=== PATIENT | female | born 1950 | race Caucasian/White ===

== ENCOUNTER 2022-05-23 07:49 | Outpatient (CLI) | payer MEDICARE, SELFPAY ==
--- NOTE | ~2022-05-23 | MM_ITS ---
EXAMINATION: MM screening [facility] BI w blaze HISTORY: Screening mammogram, family history of breast cancer in her sister. TECHNIQUE: Craniocaudal and mediolateral oblique 3-D tomosynthesis images were obtained and synthetic 2-D images were generated. CAD analysis was submitted and interpreted. COMPARISON: 03/06/2019, 05/02/2017, 08/09/2015, 08/02/2015 BREAST PARENCHYMAL COMPOSITION: There are scattered areas of fibroglandular density. FINDINGS: Scattered benign-appearing calcifications are present. There is no suspicious mass, calcifi cation, or architectural distortion to suggest malignancy in either breast. There has been no suspici ous interval change. IMPRESSION: 1. No mammographic evidence of malignancy. 2. Recommend routine screening mammography in one year. BI-RADS Category 2: Benign finding(s). Reviewed, dictated and finalized at location A.
--- NOTE | ~2022-05-23 | DEXA_ITS ---
Bone Density Report Name: RANDY PENNY Age: 71 Sex: Female Ethnicity: White Date of : 1950 Indication: postmenopausal; screening for osteoporosis; hysterectomy; Referring Provider: JACE, DAVI Study: Bone densitometry was performed. Exam Date: May 23, 2022 Accession number: [id number] Bone Density: Region BMD T-score Z-score Classification AP Spine(L1-L4) 1.211 1.5 3.6 Normal Femoral Neck (Left) 0.680 -1.5 0.3 Osteopenia Total Hip (Left) 0.843 -0.8 0.7 Normal Femoral Neck (Right) 0.645 -1.8 0.0 Osteopenia Total Hip (Right) 0.835 -0.9 0.7 Normal Total Hip Mean 0.839 -0.9 0.7 Normal World Health Organization criteria for BMD impression classify patients as: Normal (T-score at or above -1.0), Osteopenia (T-score between -1.0 and -2.5), or Osteoporosis (T-score at or below -2.5). 10-year Fracture Risk(1): Major Osteoporotic Fracture 10% Hip Fracture 1.7% Reported Risk Factors: [place] (), Neck BMD=0.645, BMI=36.9 (1) FRAX(R) Version 3.08. Fracture probability calculated for an untreated patient. Fracture probability may be lower if the patient has received treatment. Previous Exams: Region Exam Age BMD T-score BMD Change BMD Change Date g/cm2 vs Baseline vs Previous Total Hip(Left) 05/23/2022 71 0.843 -0.8 -0.072 (-7.9%) -0.072 (-7.9%) 03/06/2019 68 0.915 -0.2 Total Hip(Right) 05/23/2022 71 0.835 -0.9 -0.071 (-7.8%) -0.071 (-7.8%) 03/06/2019 68 0.906 -0.3 *Denotes significance at 95% confidence level, LSC for Total Hip = 0.027 g/cm2 Clinical Information Provided by Patient: Has the following medical conditions: Hysterectomy Patient maximum height was 64 Menopause Age: 56 No regular weight bearing exercise Drinks caffeinated beverages Onset of menses at age 13 Number of children 3 Impression: The patient has low bone mass, based on the Right Femoral Neck T-score. The patient has an estimated ten-year risk of hip fracture of 1.7% and an estimated ten-year risk of major fracture of 10%, based on the WHO FRAX algorithm. The BMD for the Total Hip(Left) decreased, changing by -7.9% since the last DXA exam. The BMD for the Total Hip(Right) decreased, changing by -7.8% since the last DXA exam. Discussion: BONE DENSITY IS LOW AT ONE OR MORE SKELETAL SITES. This patient's lowest T-score is low at one or more skeletal sites. It meets the World Health Organization's (WHO) criteria for ?low bone mass? (T-score between -1.
== END 2022-05-23 07:50 | disposition home or self-care (01) ==
PROVIDERS: PCP Physician Assistant; Visit Provider Physician Assistant
DX: Z12.31 Encounter for screening mammogram for malignant neoplasm of breast (principal); Z78.0 Asymptomatic menopausal state; M85.851 Other specified disorders of bone density and structure, right thigh; M85.852 Other specified disorders of bone density and structure, left thigh
CPT/HCPCS: 77063; 77067; 77080

== ENCOUNTER 2024-01-14 08:51 | Outpatient (CLI) | payer MEDICARE, SELFPAY ==
--- NOTE | ~2024-01-14 | MM_ITS ---
EXAMINATION: MM screening [facility] HISTORY: Screening mammogram TECHNIQUE: Craniocaudal and mediolateral oblique 3-D tomosynthesis images were obtained and synthetic 2-D images were generated. CAD analysis was submitted and interpreted. COMPARISON: 05/23/2022, 03/06/2019 bilateral screening mammogram examinations BREAST PARENCHYMAL COMPOSITION: There are scattered areas of fibroglandular density. FINDINGS: Numerous bilateral benign calcifications are noted, primarily secretory type and arterial c alcifications. There is no evidence of suspicious mass, calcification, or architectural distortion to suggest malignancy in either breast. There has been no suspicious interval change. IMPRESSION: 1. Benign calcifications. No mammographic evidence of malignancy. 2. Recommend routine screening mammography in one year. BI-RADS Category 2: Benign finding(s). Reviewed, dictated and finalized at location A. 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
== END 2024-01-14 08:52 | disposition home or self-care (01) ==
PROVIDERS: PCP Physician Assistant; Visit Provider Physician Assistant
DX: Z12.31 Encounter for screening mammogram for malignant neoplasm of breast (principal)
CPT/HCPCS: 77063; 77067

== ENCOUNTER 2025-03-26 08:04 | Outpatient (CLI) | payer MEDICARE, SELFPAY ==
--- NOTE | ~2025-03-26 | MM_ITS ---
EXAMINATION: MM screening melody BI w blaze HISTORY: Screening TECHNIQUE: Craniocaudal and mediolateral oblique 3-D tomosynthesis images were obtained and synthetic 2-D images were generated. CAD analysis was submitted and interpreted. COMPARISON: Comparison to multiple prior studies sequentially, with oldest reviewed study dated 08/02. BREAST PARENCHYMAL COMPOSITION: Not dense: There are scattered areas of fibroglandular density. FINDINGS: There is no evidence of suspicious mass, calcification, or architectural distortion to sugg est malignancy in either breast. There has been no suspicious interval change. IMPRESSION: 1. No mammographic evidence of malignancy. 2. Recommend routine screening mammography in one year. BI-RADS Category 1: Negative Reviewed, dictated and finalized at location A.
--- OUTSIDE RECORDS SUMMARY | 2025-03-26 08:09 | XMS_ITS | Encounter Summary ---
Author Organization [facility] Address [address] [place] [address] Care Team Providers Care Thermocouple Tester Name Role Phone Olivia Almodovar Primary Care Provider [phone] Encounter Details Date Type Department Care Team (Late st Contact Info) Description 1950 Orders Only [facility] Health Information Management [address] [place] [address] Scanning, Provider Social History Tobacco Use Types Packs/Day Years Used Date Smoking Tobacco: Never Assessed Comments Unknown Sex and Gender Information Value Date Recorded Sex Assigned at Not on file Legal 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 Gender Identity Not on file Sexual Orientation Not on file documented as of this encounter Plan of Treatment Not on file documented as of this encounter Procedures Procedure Name Priority Date/Time Associated Diagnosis Comments SCAN - RADIOLOGY/IMAGING 1950 documented in this encounter Results * SCAN - RADIOLOGY/IMAGING (1950) Anatomical Region Laterality Modality Other us Provider Scanning Final Result documented in this encounter Visit Diagnoses Not on filedocumented in this encounter Care Teams Thermocouple Tester Relationship Specialty Start Date End Date Olivia Almodovar PA [address] [place], [place] [phone] PCP - General Internal Medicine 03/05/19 documented as of this encounter
--- OUTSIDE RECORDS SUMMARY | 2025-03-26 08:09 | XMS_ITS | Encounter Summary ---
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 us Historical Provider Final Res ult documented in this encounter Visit Diagnoses Not on filedocumented in this encounter Care Teams Technology Sales Consultant Relationship Specialty Start Date End Date Olivia Almodovar PA [address] [place], [place] [phone] PCP - General Internal Medicine 03/05/19 documented as of this encounter
--- OUTSIDE RECORDS SUMMARY | 2025-03-26 08:09 | XMS_ITS | Clinical Summary ---
Author Organization [facility] Address [address] [place] [id number] Care Team Providers Care Cabin Furnishings Installer Name Role Phone Olivia Almodovar Primary Care Provider [phone] Allergies Active Allergy Reactions Criticality Noted Date Comments Codeine GI Upset 07/09/2022 Medications escitalopram (LEXAPRO) 10 MG tablet Take 10 mg by mouth daily. Active lisinopril (PRINIVIL) 10 MG tablet Take 10 mg by mouth daily. Active rosuvastatin (CRESTOR) 20 MG tablet Take 20 mg by mouth nightly at bedtime. Active vitamin D3, cholecalciferol , 5000 UNITS capsule Take 5,000 Units by mouth daily. Active Active Problems No known active problems Family History Medical History Relation Comments Heart Disease Father Cancer Mother Relation Status Comments Father Mother Social History Tobacco Use Types Packs/Day Years Used Date Smoking Tobacco: Never Smokeless Tobacco: Never Alcohol Use Standard Drinks/Week Comments Yes 0 (1 standard drink = 0.6 oz pur e alcohol) OCCAS. Comments No Sex and Gender Information Value Date Recorded Sex Assigned at Not on file Legal Sex Female 7:46 PM CDT Gender Identity Not on file Sexual Orientation Not on file Last Filed Vital Signs Vital Sign Reading Time Taken Comments Blood Pressure 108/61 07/19/2022 9:00 AM CDT Pulse 61 07/19/2022 9:00 AM CDT Temperature 35.9 C (96.6 F) 07/19/2022 8:48 AM CDT Respiratory Rate 16 07/19/2022 9:00 AM CDT Oxygen Saturation 99% 07/19/2022 9:00 AM CDT Inhaled Oxygen Concentration - - Weight 90.7 kg (200 lb) 07/09/2022 3:34 PM CDT Height 165.1 cm (5' 5 ) 07/09/2022 3:34 PM CDT Body Mass Index 33.28 07/09/2022 3:34 PM CDT Plan of Treatment Health Maintenance Due Date Last Done Comments Hepatitis C 1969 Mammogram Screening 1991 Zoster Vaccines (1 of 2) 2001 Annual Medicare Wellness Visit 2016 DTaP, Tdap and Td Vaccines (2 - Tdap) 03/23/2018 03/23/2008 COVID-19 Vaccine ( season) 2024 03/06/2022, 08/08/2021, 01/24/2021, Additional history exists RSV Immunization or 60+ Years (1 - 1-dose 75+ series) 2026 Colorectal Cancer Screening Colonoscopy (10 Years) 07/19/2032 07/19/2022 Dexa Scan (General) Completed 05/23/2022 Pneumococcal Vaccine: 50+ Years Completed 06/26/2022, 03/05/2019, 01/31/2017 Meningococcal B Vaccine Aged Out No l onger eligible based on patient's age to complete this topic Meningococcal Vaccine Aged Out No francois eugenia eligible based on patient's age to complete this topic RSV Immunizations Under 20 Months Aged Out No longer eligible based on patient's age to complete this topic Insurance [place] [employer] Care Teams Cabin Furnishings Installer Relationship Specialty Start Date End Date Olivia Almodovar PA [address] [place] [address] PCP - General PHYSICIAN RESUME WRITER 07/19/22
--- OUTSIDE RECORDS SUMMARY | 2025-03-26 08:09 | XMS_ITS | Encounter Summary ---
Author Organization 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 us Historical Provider Final Res ult documented in this encounter Visit Diagnoses Not on filedocumented in this encounter Care Teams Delivery Room Clerk Relationship Specialty Start Date End Date Olivia Almodovar PA [address] [place], [place] [phone] PCP - General Internal Medicine 03/05/19 documented as of this encounter
--- OUTSIDE RECORDS SUMMARY | 2025-03-26 08:09 | XMS_ITS | Referral Summary ---
Author Organization [facility] [address] [facility] Address [address] [place] [address] Care Team Providers Care Manager Of Financial Name Role Phone Olivia Almodovar Primary Care Provider [phone] Encounters Date Type Department Care Team Description 03/09/2025 8:39 AM CDT - 03/09/2025 11:59 PM CDT Hospital Encounter [facility] Diag Imaging [address] [place] [id number] Status post total knee replacement not using cement, left Discharge Disposition: Discharge to home or self care 03/09/2025 9:00 AM CDT Office Visit [facility] [address] [place] [phone] Jovany Montgomery MD Status post total knee replacement not using cement, left (Primary Dx) 02/18/2025 Telephone [facility] [address] [place] [address] [place] [phone] Jovany Montgomery MD after surgery machine 02/09/2025 11:00 AM CDT - 02/09/2025 11:59 PM CDT Hospital Encounter [facility] Diag Imaging [address] [place] [phone] Primary osteoarthritis of left knee Discharge Disposition: Discharge to home or self care 02/09/2025 12:40 PM CDT - 02/09/2025 11:59 PM CDT Hospital Encounter [facility] Cardiac Testing [address] [place] [phone] Pain of left calf Discharge Disposition: Discharge to home or self care 02/09/2025 10:30 AM CDT Office Visit [facility] [address] [place] [address] [place] [phone] Vasu Pereira PA Status post total knee replacement not using cement, left (Primary Dx); Orthopedic aftercare; Pain of left calf; Primary osteoarthritis of left knee 02/08/2025 Telephone [facility] [address] [place] [address] [place] [phone] Jovany Montgomery MD 02/04/2025 9:30 AM CDT Telemedicine [facility] Family Medicine [address] [facility] [address] [place] [phone] Olivia Almodovar PA Status post total knee replacement not using cement, left (Primary Dx); Moderate episode of recurrent major depressive disorder (HCC); Mixed hyperlipidemia; Primary hypertension 01/27/2025 Telephone [facility] [address] [place] [phone] Jovany Montgomery MD 01/25/2025 9:10 AM CDT - 01/26/2025 3:00 PM CDT Hospital Encounter [address] [address] Jovany Montgomery MD Primary osteoarthritis of left knee (Primary Dx); Arthritis of left knee Discharge Disposition: Discharge to home, home health skilled care 01/25/2025 10:30 AM CDT Ancillary Procedure [facility] OR [address] [place] [phone] 01/25/2025 11:15 AM CDT - 01/25/2025 1:45 PM CDT Surgery [facility] OR [address] [place] [phone] Jovany Montgomery MD LEFT TOTAL KNEE ARTHROPLASTY 01/25/2025 11:01 AM CDT Anesthesia Event [facility] Main OR [address] [place] [phone] Rhonda Campos MD Taylor-White, Carlotta A., NP 01/15/2025 Telephone [facility] [address] [place] [address] [address] [place] [phone] Jovany Montgomery MD Wants seat for toilet after TKA sgy 01/12/2025 Documentation [facility] [address] [address] Kezia Patel, NATHALIE 01/12/2025 Plan of Care Documentation [facility] OP Physical Therapy [address] [place] [phone] 01/12/2025 12:20 PM FIREWORKS [employer]KER Pre-Admission Testing [facility] PreAdmission Testing [address] [place] [phone] Preop examination (Primary Dx); Primary osteoarthritis of left knee; Preop testing 01/12/2025 10:00 AM FIREWORKS [employer] Therapy [facility] OP Physical Therapy [address] [place] [phone] Kerri Kwok, HALEIGH Primary osteoarthritis of right knee (Primary Dx) 01/08/2025 Telephone [facility] [address] [place] [address] [place] [phone] Jovany Montgomery MD 01/05/2025 2:30 PM FIREWORKS [employer] Office Visit [facility] [address] [facility] [address] [place] [phone] Olivia Almodovar PA Primary osteoarthritis of left knee (Primary Dx); Encounter for pre-operative examination; Moderate episode of recurrent major depressive disorder (HCC); Mixed hyperlipidemia; Primary hypertension; Anxiety; Obesity (BMI 30.0-34.9); BMI 34.0-34.9,adult 01/04/2025 5:59 AM FIREWORKS MAKER - 01/04/2025 11:59 PM FIREWORKS [employer] Hospital Encounter [facility] MRI [address] [place] [address] Chronic right-sided low back pain with bilateral sciatica; Lumbar radiculopathy Discharge Disposition: Discharge to home or self care from Last 3 Months Allergies Active Allergy Reactions Criticality Noted Date Comments Codeine Stomach upset Low 12/04/2011 Stomach/GI Upset Medications cholecalcifer ol (VITAMIN D-3) 5,000 unit capsule Take 1 capsule (5,000 Units total) by mouth daily Active cyanocobalami n, vitamin B-12, (VITAMIN B-12 ORAL) Take 1 tablet by mouth every evening Active CALCIUM ORAL Take 1 tablet by mouth daily Active escitalopram (LEXAPRO) 10 mg tabletIndicat ions:Anxiety Take 1 tablet (10 mg total) by mouth daily 01/18/20 25 Active HYDROcodone-a cetaminophen (NORCO) 5-325 mg per tabletIndicat ions:Pain Take 1-2 tablets by mouth every 4 (four) hours as needed for pain 50 tablet 01/27/20 25 Active Additional Information Patient not taking.Reported on 03/09/2025 meloxicam (MOBIC) 15 mg tablet Take 1 tablet (15 mg total) by mouth daily 30 tablet 1 01/27/20 25 026 Active traMADoL (ULTRAM) 50 mg tablet Take 1 tablet (50 mg total) by mouth every 6 (six) hours as needed for pain (mild to moderate pain, ok to take with Meloxicam, do not take with Jackson) 40 tablet 01/27/20 25 Active rosuvastatin (CRESTOR) 20 mg tablet Take 1 tablet by mouth once daily 90 tablet 03/10/20 25 Active lisinopriL (PRINIVIL,ZES TRIL) 10 mg tablet TAKE 1 TABLET BY MOUTH EVERY DAY 90 tablet 1 03/11/20 25 Active rosuvastatin (CRESTOR) 20 mg tablet Take 1 tablet by mouth once daily 90 tablet 12/11/19 25 025 Discontinued senna-docusat e (PERICOLACE) 8.6-50 mg Take 1 tablet by mouth daily 30 tablet 01/27/20 25 025 Discontinued( erapy completed) aspirin 81 mg enteric coated tabletIndicat ions:preventi on of thrombosis Take 1 tablet (81 mg total) by mouth daily for 28 days 28 tablet 01/27/20 25 025 Discontinued(Th erapy completed) lisinopriL (PRINIVIL,ZES TRIL) 10 mg tablet Take 1 tablet (10 mg total) by mouth daily 02/17/20 25 025 Discontinued Active Problems Problem Noted Date Diagnosed Date Status post total knee replacement not using vadim ent, left 02/09/2025 Assessment & Plan (02/16/2025 10:17 PM CDT): Status post total knee replacement by Dr. Jad Montgomery on January 25, 2025. She is doing physical therapy at home and doing well. No signs or symptoms of infection. Continue follow-up per ortho or follow up with this she has any other problems or concerns Pain of left calf 02/09/2025 Primary osteoarthritis of left knee 12/01/2024 Assessment & Plan (01/10/2025 11:14 PM FIREWORKS MAKER): Patient has arthritis of the knee. She is scheduled for total left knee replacement with Dr. Montgomery on January 25 in [facility]. Fatigue 03/07/2024 Assessment & Plan (03/07/2024 10:21 PM CDT): Probably multifactorial. Check labs and followup to re-evaluate Chronic pain of both knees 03/07/2024 Assessment & Plan (09/01/2024 11:31 AM CDT): Worsening BL knee pain. Taking ibuprofen as needed. Often wakes up in the middle of the night and in morning in pain. Will START meloxicam 15 mg nightly for longer duration of pain control. STOP ibuprofen with concurrent use of meloxicam. Patient is currently seeing Dr. Montgomery [facility] ortho. Steroid injections done with no improvement in pain. Patient is deferring surgery and other interventions until later time as she is currently caring for her who had recent surgery. Declines PT. Assessment & Plan (03/07/2024 10:21 PM CDT): Patient with bilateral knee pain. Will start with x-rays. Anxiety 08/26/2023 Assessment & Plan (01/10/2025 11:14 PM FIREWORKS MAKER): Symptoms are stable with the Lexapro 10. Assessment & Plan (09/01/2024 11:13 AM CDT): Stable with Lexapro 10 mg Assessment & Plan (08/26/2023 9:11 AM CDT): Stable with Lexapro. Refills available at pharmacy Chronic left-sided low back pain without sciatic a 02/25/2023 Assessment & Plan (02/25/2023 11:54 PM CDT): This is a significant, separately identifiable problem that was evaluated and managed on the same day as the wellness exam Encouraged NSAIDS (if able to safely tolerate) or Tylenol. Topical preparations like Lidocaine patches, Biofreeze, ICYHOT etc as needed. Heat, stretching Avoid long periods of sitting/laying. Encouraged PT but patient declined. Followup if has any problems controlling bowels or bladder or if sxs worsen. Obesity (BMI 30.0-34.9) 03/06/2022 Assessment & Plan (01/05/2025 2:41 PM FIREWORKS MAKER): Discussed the patient's BMI. The BMI is above average. BMI management plan is completed. BMI Follow-up includes: nutrition counseling, exercise counseling and education provided. Assessment & Plan (09/01/2024 8:37 AM CDT): Discussed the patient's BMI. The BMI is above average. BMI management plan is completed. BMI Follow-up includes: nutrition counseling, exercise counseling and education provided. Assessment & Plan (03/20/2022 11:40 PM CDT): Obesity is unchanged. Discussed the patient's BMI. The BMI is above average. BMI management plan is completed. BMI Follow-up includes: nutrition counseling, exercise counseling and education provided. Patient has an obesity-related condition (not limited to: hypertension, obstructive sleep apnea, osteoarthritis, hyperlipidemia, diabetes, etc.). Therefore, morbid obesity may be documented for patients with a BMI between 35.00-39.99. Assessment & Plan (03/07/2022 10:09 PM CDT): Obesity is unchanged. Discussed the patient's BMI. The BMI is above average. BMI management plan is completed. BMI Follow-up includes: nutrition counseling, exercise counseling and education provided. Patient has an obesity-related condition (not limited to: hypertension, obstructive sleep apnea, osteoarthritis, hyperlipidemia, diabetes, etc.). Therefore, morbid obesity may be documented for patients with a BMI between 35.00-39.99. Lesion of skin of face 03/06/2022 Assessment & Plan (03/07/2024 10:20 PM CDT): Encouraged to follow-up with Dr. Abdi for the area on her face/nose Assessment & Plan (02/25/2023 11:53 PM CDT): Patient has facial rash. Unsure if it is secondary to wearing a mask verses a pustular rosacea. She would like to see Dermatology. She prefers Dr. Abdi. Provided his name and number to call as she was referred last year and did not follow-up. She is in agreement the plan Assessment & Plan (03/07/2022 10:09 PM CDT): Bleeding lesion on the tip of her nose. Will make referral to Dermatology for further evaluation. Primary hypertension 02/24/2022 Assessment & Plan (02/16/2025 10:17 PM CDT): Bp is stable/in acceptable range for any co-morbidities. Encouraged to limit sodium intake and exercise for weight control. Continue lisinopril 10 Assessment & Plan (01/10/2025 11:14 PM FIREWORKS MAKER): Bp is stable/in acceptable range for any co-morbidities. Encouraged to limit sodium intake and exercise for weight control. Continue lisinopril 10 Assessment & Plan (09/01/2024 11:13 AM CDT): BP in stable range. Encouraged low sodium diet, daily exercise, weight management. Continue lisinopril 10 mg. Assessment & Plan (03/07/2024 10:21 PM CDT): Bp is stable/in acceptable range for any co-morbidities. Encouraged to limit sodium intake and exercise for weight control. Continue lisinopril. Encouraged her to decrease her banana intake as her potassium is just on the upper edge of normal Assessment & Plan (08/26/2023 9:11 AM CDT): Bp is stable/in acceptable range for any co-morbidities. Encouraged to limit sodium intake and exercise for weight control. Continue lisinopril 10 Assessment & Plan (02/25/2023 11:52 PM CDT): Bp is stable/in acceptable range for any co-morbidities. Encouraged to limit sodium intake and exercise for weight control. Continue lisinopril Assessment & Plan (08/26/2022 2:49 PM CDT): Bp is stable/in acceptable range for any co-morbidities. Encouraged to limit sodium intake and exercise for weight control. Continue lisinopril 10 Assessment & Plan (06/26/2022 8:31 AM CDT): Bp is stable/in acceptable range for any co-morbidities. Encouraged to limit sodium intake and exercise for weight control. Continue lisinopril Assessment & Plan (03/20/2022 11:40 PM CDT): Bp is stable/in acceptable range for any co-morbidities. Encouraged to limit sodium intake and exercise for weight control. Stable with lisinopril 10 Assessment & Plan (03/07/2022 10:09 PM CDT): Bp is stable/in acceptable range for any co-morbidities. Encouraged to limit sodium intake and exercise for weight control. Continue lisinopril 10 mg Assessment & Plan (02/24/2022 2:04 PM CDT): Patient with elevated readings today. Her readings in the past have been more normal but she has not followed in the office in a few years. Discussed starting medication as I think she would benefit but she is very hesitant to add a medication. Advised may follow-up in 1 week with readings to reassess and if still elevated that point will need to start medication. She is in agreement. BMI 34.0-34.9,adult 06/10/2019 Assessment & Plan (01/05/2025 2:41 PM FIREWORKS MAKER): Discussed the patient's BMI. The BMI is above average. BMI management plan is completed. BMI Follow-up includes: nutrition counseling, exercise counseling and education provided. Assessment & Plan (08/30/2019 7:57 PM CDT): Obesity is unchanged. Discussed the patient's BMI. The BMI is above average. BMI management plan is completed. BMI Follow-up includes: nutrition counseling, exercise counseling and education provided. Assessment & Plan (06/10/2019 2:55 PM CDT): Obesity is unchanged. Discussed the patient's BMI. The BMI is above average. BMI management plan is completed. BMI Follow-up includes: nutrition counseling, exercise counseling and education provided. Vertigo 03/05/2019 Assessment & Plan (03/15/2019 7:05 PM CDT): Refill meclizine to use prn. Tinea cruris 03/05/2019 Assessment & Plan (03/15/2019 6:58 PM CDT): Flairing. Keep area clean and dry. Use cool hairdryer prior to applying the Lotrisone. Menopause 03/05/2019 Assessment & Plan (02/24/2022 2:00 PM CDT): Check DEXA Assessment & Plan (03/15/2019 6:58 PM CDT): DXA order provided Mixed hyperlipidemia 03/05/2019 Assessment & Plan (02/16/2025 10:17 PM CDT): Encouraged patient to follow low fat/low chol diet like the Mediterranean diet. Increase good fats in the diet. Increase exercise. Monitor labs as needed. Continue Crestor 20 Assessment & Plan (01/10/2025 11:14 PM FIREWORKS MAKER): Encouraged patient to follow low fat/low chol diet like the Mediterranean diet. Increase good fats in the diet. Increase exercise. Monitor labs as needed. Continue Crestor 20 Assessment & Plan (09/01/2024 11:08 AM CDT): Lipid levels stable. Encouraged low fat/low cholesterol diet such as the Mediterranean diet. Encouraged healthy lifestyle, daily exercise, weight management. Continue rosuvastatin 20 mg daily. Assessment & Plan (03/07/2024 10:20 PM CDT): Encouraged patient to follow low fat/low chol diet like the Mediterranean diet. Increase good fats in the diet. Increase exercise. Monitor labs as needed. Continue Crestor 20 Assessment & Plan (08/26/2023 9:11 AM CDT): Encouraged patient to follow low fat/low chol diet like the Mediterranean diet. Increase good fats in the diet. Increase exercise. Monitor labs as needed. Continue Crestor Assessment & Plan (02/25/2023 11:52 PM CDT): Encouraged patient to follow low fat/low chol diet like the Mediterranean diet. Increase good fats in the diet. Increase exercise. Monitor labs as needed. Continue Crestor Assessment & Plan (08/26/2022 2:49 PM CDT): Encouraged patient to follow low fat/low chol diet like the Mediterranean diet. Increase good fats in the diet. Increase exercise. Monitor labs as needed. Continue Crestor Assessment & Plan (06/26/2022 8:30 AM CDT): Encouraged patient to follow low fat/low chol diet like the Mediterranean diet. Increase good fats in the diet. Increase exercise. Monitor labs as needed. Patient still wants to work on diet control. Waiting to check labs to determine control Assessment & Plan (03/26/2022 1:54 PM CDT): Encouraged patient to follow low fat/low chol diet like the Mediterranean diet. Increase good fats in the diet. Increase exercise. Monitor labs as needed. Discussed starting statin. She declines at this time Addendum: 03/26 corrected after speaking with patient -- Will start Crestor 10mg. Try her normal pharm [facility] and if too expensive, will try good Rx. Assessment & Plan (03/07/2022 10:08 PM CDT): Encouraged patient to follow low fat/low chol diet like the Mediterranean diet. Increase good fats in the diet. Increase exercise. Monitor labs as needed. Will await lipid panel as it was not drawn at the lab. Assessment & Plan (02/24/2022 2:00 PM CDT): Encouraged patient to follow low fat/low chol diet like the Mediterranean diet. Increase good fats in the diet. Increase exercise. Monitor labs as needed. Patient stop statin a couple years ago as she did not follow-up in the office. Has not had labs since 2019. Recommend labs and reassess need for the statin. Assessment & Plan (08/30/2019 7:57 PM CDT): Encouraged patient to continue low fat/low chol diet. Continue exercise. Increase good fats in the diet. Monitor labs as needed. D Needs to start statin. Reviewed risks, benefit, alternatives, side effects and proper use. Start Crestor. Recheck LFTs in 3-4 months when rechecking the lipids Assessment & Plan (03/15/2019 6:59 PM CDT): Check labs. Pt hasn't had labs in years. Hyperglycemia 03/05/2019 Assessment & Plan (03/07/2024 10:20 PM CDT): Pre-diabetes/hyperglycemia is a precursor to Dm. Stressed importance of working on diet (decrease your simple sugars and one carbohydrate with each meal) and increase you exercise to achieve weight loss and this will help prevent you from progressing to diabetes. Assessment & Plan (08/26/2022 2:49 PM CDT): Pre-diabetes/hyperglycemia is a precursor to Dm. Stressed importance of working on diet (decrease your simple sugars and one carbohydrate with each meal) and increase you exercise to achieve weight loss and this will help prevent you from progressing to diabetes. Assessment & Plan (02/24/2022 2:00 PM CDT): Pre-diabetes/hyperglycemia is a precursor to Dm. Stressed importance of working on diet (decrease your simple sugars and one carbohydrate with each meal) and increase you exercise to achieve weight loss and this will help prevent you from progressing to diabetes. Assessment & Plan (03/15/2019 6:59 PM CDT): Hyperglycemia can be a precursor to Dm. Stressed importance of working on diet (decrease your simple sugars and one carbohydrate with each meal) and increase you exercise to achieve weight loss and this will help prevent you from progressing to diabetes. Check labs Moderate episode of recurrent major depressive d yolandeer 03/04/2019 Assessment & Plan (02/16/2025 10:16 PM CDT): Depression anxiety symptoms are stable with the Lexapro 10 Assessment & Plan (01/10/2025 11:14 PM FIREWORKS MAKER): Symptoms are stable with Lexapro 10 Assessment & Plan (03/07/2024 10:20 PM CDT): Stable with Lexapro. Still encouraged Nicole[employer] anonymous and counseling. Assessment & Plan (08/26/2023 9:10 AM CDT): Continue Lexapro. Symptoms are stable Assessment & Plan (02/25/2023 11:52 PM CDT): Symptoms are stable with Lexapro 10 Assessment & Plan (08/26/2022 2:49 PM CDT): Patient still have symptoms as well as problems with gambling. Was prescribed Lexapro but very hesitant to take it. Reviewed risks benefits alternatives side effects and proper use. She still has available at home so may consider. Call at any time if needs assistance. Strongly encouraged counseling Assessment & Plan (06/26/2022 8:29 AM CDT): Discussed again stress and depression symptoms at length. Discussed the addiction with her gambling. Strongly encouraged counseling. Will represcribe the Lexapro 10 mg. Reviewed risks benefits alternatives side effects and proper use. Follow-up in 4-6 weeks to reassess Assessment & Plan (03/07/2022 10:08 PM CDT): Patient never started the Lexapro. She feels like she is doing okay. She does get frustrated at times but wants to continue to observe. Will reassess in 4-6 weeks. May call at any time if desires to start again. Assessment & Plan (08/30/2019 7:57 PM CDT): Never started the Lexapro. Wants to monitor without medication. Assessment & Plan (06/13/2019 9:24 AM CDT): Discussed depression/grief and gambling. Discussed treatment options including medication and counseling and behavioral changes, but she may need to seek specific treatment for gambling addiction. Start Lexapro. Reviewed risks, benefit, alternatives, side effects and proper use. Assessment & Plan (03/15/2019 7:04 PM CDT): Depression sxs are increasing related to situational issues. Reviewed behavioral changes. Discussed medication but at this point wants to try to without medications. Call if sxs increase Depression, major, single episode, mild 02/01/20 17 Non morbid obesity due to excess calories 2016 Resolved Problems Problem Noted Date Diagnosed Date Resolved Date Orthopedic aftercare 02/09/2025 025 Arthritis of left knee 01/25/202502/16 Encounter for pre-operative examination 01/10/2025 02/16/2025 Assessment & Plan (01/10/2025 11:19 PM FIREWORKS MAKER): Pre-op labs and EKG results are on the chart and are normal. I have examined this patient and ordered the appropriate lab work/tests. I have reviewed with patient the inherent risks associated with surgery, not limited to bleeding, infection, DVT, etc. I EKG was normal. Patient denies any cardiac sxs with activity. Therefore, to the best of my knowledge, there is not a medical contraindication for undergoing this elective surgery with general and/or regional anesthesia. BMI 34.0-34.9,adult 08/26/2023 09/01/20 24 Assessment & Plan (03/07/2024 10:21 PM CDT): Discussed the patient's BMI. The BMI is above average. BMI management plan is completed. BMI Follow-up includes: nutrition counseling, exercise counseling and education provided. Assessment & Plan (08/26/2023 8:41 AM CDT): Discussed the patient's BMI. The BMI is above average. BMI management plan is completed. BMI Follow-up includes: nutrition counseling, exercise counseling and education provided. BMI 33.0-33.9,adult 08/26/2023 01/11/20 25 Assessment & Plan (09/01/2024 8:35 AM CDT): Discussed the patient's BMI. The BMI is above average. BMI management plan is completed. BMI Follow-up includes: nutrition counseling, exercise counseling and education provided. Assessment & Plan (03/07/2024 10:21 PM CDT): Discussed the patient's BMI. The BMI is above average. BMI management plan is completed. BMI Follow-up includes: nutrition counseling, exercise counseling and education provided. Assessment & Plan (08/26/2023 8:41 AM CDT): Discussed the patient's BMI. The BMI is above average. BMI management plan is completed. BMI Follow-up includes: nutrition counseling, exercise counseling and education provided. Need for immunization against influenza 08/26/2023 03/07/2024 Assessment & Plan (08/26/2023 9:11 AM CDT): Flu vaccine updated in the office today Obesity (BMI 30-39.9) 02/25/20232022 Assessment & Plan (02/25/2023 8:47 AM CDT): Discussed the patient's BMI. The BMI is above average. BMI management plan is completed. BMI Follow-up includes: nutrition counseling, exercise counseling and education provided. BMI 34.0-34.9,adult 02/25/2023 08/26/20 Assessment & Plan (02/25/2023 8:47 AM CDT): Discussed the patient's BMI. The BMI is above average. BMI management plan is completed. BMI Follow-up includes: nutrition counseling, exercise counseling and education provided. Medicare annual wellness visit, subsequent 02/25/2023 01/10/2025 Assessment & Plan (03/07/2024 10:20 PM CDT): Insert Medicare wellness exam Assessment & Plan (02/25/2023 11:54 PM CDT): Encouraged healthy lifestyle, good nutrition and exercise. Encouraged Calcium and Vitamin D and weight bearing exercise for bone health. Reviewed immunizations. Reviewed age appropirate screenings. Medicare Wellness Documentation is completed within the chart Breast cancer screening by mammogram 02/25/2023 03/07/2024 Assessment & Plan (02/25/2023 11:54 PM CDT): Mammogram order provided Hyperkalemia 02/25/2023 03/07/2024 Assessment & Plan (02/25/2023 11:55 PM CDT): This is a significant, separately identifiable problem that was evaluated and managed on the same day as the wellness exam Potassium is elevated. She states she eats 1-2 bananas every day. Suspect this is the underlying cause of the hyperkalemia. Encouraged her to decrease to half a banana day. Recheck CMP in 1-2 weeks. If still elevated may have to consider changing the lisinopril but truly suspect that this is dietary intake issue. Flu vaccine need 08/26/2022 02/25/2023 Assessment & Plan (08/26/2022 2:49 PM CDT): Flu vaccine updated in the office today Obesity (BMI 30-39.9) 06/26/20222022 Assessment & Plan (08/26/2022 2:49 PM CDT): Discussed the patient's BMI. The BMI is above average. BMI management plan is completed. BMI Follow-up includes: nutrition counseling, exercise counseling and education provided. Assessment & Plan (06/26/2022 7:29 AM CDT): Obesity is unchanged. Discussed the patient's BMI. The BMI is above average. BMI management plan is completed. BMI Follow-up includes: nutrition counseling, exercise counseling and education provided. BMI 34.0-34.9,adult 06/26/2022 02/26/20 23 Assessment & Plan (08/26/2022 2:49 PM CDT): Discussed the patient's BMI. The BMI is above average. BMI management plan is completed. BMI Follow-up includes: nutrition counseling, exercise counseling and education provided. Assessment & Plan (06/26/2022 7:29 AM CDT): Obesity is unchanged. Discussed the patient's BMI. The BMI is above average. BMI management plan is completed. BMI Follow-up includes: nutrition counseling, exercise counseling and education provided. Need for 23-polyvalent pneum ococcal polysaccharide vaccine 06/26/2022 08/26/2022 Assessment & Plan (06/26/2022 8:31 AM CDT): Updated in office today Obesity (BMI 30-39.9) 03/20/20222021 Assessment & Plan (03/20/2022 11:03 AM CDT): Obesity is unchanged. Discussed the patient's BMI. The BMI is above average. BMI management plan is completed. BMI Follow-up includes: nutrition counseling, exercise counseling and education provided. BMI 35.0-35.9,adult 03/20/2022 06/26/20 Assessment & Plan (03/20/2022 11:04 AM CDT): Obesity is unchanged. Discussed the patient's BMI. The BMI is above average. BMI management plan is completed. BMI Follow-up includes: nutrition counseling, exercise counseling and education provided. Facial lesion 03/20/2022 02/25/2023 Assessment & Plan (03/20/2022 11:40 PM CDT): Patient facial lesion that continues to bleed. She needs to see Derm. First referral will take over 6 months so will make a new referral. BMI 35.0-35.9,adult 03/06/2022 03/20/20 Assessment & Plan (03/06/2022 1:06 PM CDT): Obesity is unchanged. Discussed the patient's BMI. The BMI is above average. BMI management plan is completed. BMI Follow-up includes: nutrition counseling, exercise counseling and education provided. Obesity (BMI 30-39.9) 02/20/20222021 Assessment & Plan (02/20/2022 8:48 AM CDT): Obesity is unchanged. Discussed the patient's BMI. The BMI is above average. BMI management plan is completed. BMI Follow-up includes: nutrition counseling, exercise counseling and education provided. BMI 35.0-35.9,adult 02/20/2022 03/06/20 Assessment & Plan (02/20/2022 8:48 AM CDT): Obesity is unchanged. Discussed the patient's BMI. The BMI is above average. BMI management plan is completed. BMI Follow-up includes: nutrition counseling, exercise counseling and education provided. Medicare annual wellness visit, subsequent 02/20/2022 03/07/2022 Assessment & Plan (02/24/2022 2:01 PM CDT): Encouraged healthy lifestyle, good nutrition and exercise. Encouraged Calcium and Vitamin D and weight bearing exercise for bone health. Reviewed immunizations. Reviewed age appropirate screenings. Medicare Wellness Documentation is completed within the chart Breast cancer screening by mammogram 02/20/2022 06/26/2022 Assessment & Plan (02/24/2022 2:01 PM CDT): Mammogram order provided Colon cancer screening 02/20/202208/26 Assessment & Plan (06/26/2022 8:30 AM CDT): Scheduled with Dr. Suazo on July 19 Assessment & Plan (02/24/2022 2:02 PM CDT): Patient needs colonoscopy. No record of any colon cancer screening Neck pain 01/29/2022 03/07/2024 Assessment & Plan (01/29/2022 3:43 PM CDT): Patient was seen by telephone so difficult to fully evaluate patient as unable to examine. I verbalized this to the patient and she understood. I offered her a visit sooner that her follow-up in 3 weeks she declines at this time. This sounds like a possible torticollis versus other musculoskeletal tenderness. Recommend physical therapy along with an anti-inflammatory and ice and/or heat to the area. She declines all of this. 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 Advised will need to check with her insurance on coverage but usually she can self refer with this. If her symptoms worsen she is to follow up. Advised difficult to get an MRI without 1st considering physical therapy so she may call at any time for that order if she desires. Leukopenia 08/30/2019 03/07/2024 Assessment & Plan (08/30/2019 8:01 PM CDT): Recheck labs Encounter for pre-operative examination 08/30/2019 03/07/2022 Assessment & Plan (08/30/2019 7:59 PM CDT): EKG in office normal. MAC is planned. She denies CP, SOB, pain with exertion. Has tolerated both MAC and general in the past without problems. Will provide clearance for the patient for her eye surgery. Forms completed and returned to Opthamologist. Need for immunization against influenza 08/30/2019 03/07/2022 Assessment & Plan (08/30/2019 8:01 PM CDT): Updated in office today Chronic otitis externa of both ears 03/15/2019 03/07/2022 Assessment & Plan (03/15/2019 7:02 PM CDT): Avoid qtips or putting things into the ears. Cortisporin otic to both ears. Followup if sxs persist BMI 35.0-35.9,adult 03/05/2019 06/10/20 19 Assessment & Plan (03/15/2019 7:02 PM CDT): Obesity is unchanged. Discussed the patient's BMI. The BMI is above average; BMI management plan is completed. General weight loss/lifestyle modification strategies discussed (elicit support from others; identify saboteurs; non-food rewards, etc). Obesity (BMI 30-39.9) 03/05/20192021 Assessment & Plan (08/30/2019 7:56 PM CDT): Obesity is unchanged. Discussed the patient's BMI. The BMI is above average. BMI management plan is completed. BMI Follow-up includes: nutrition counseling, exercise counseling and education provided. Assessment & Plan (06/10/2019 2:55 PM CDT): Obesity is unchanged. Discussed the patient's BMI. The BMI is above average. BMI management plan is completed. BMI Follow-up includes: nutrition counseling, exercise counseling and education provided. Assessment & Plan (03/15/2019 6:58 PM CDT): Obesity is unchanged. Discussed the patient's BMI. The BMI is above average; BMI management plan is completed. General weight loss/lifestyle modification strategies discussed (elicit support from others; identify saboteurs; non-food rewards, etc). Other fatigue 03/05/2019 03/07/2024 Assessment & Plan (08/26/2022 2:49 PM CDT): Probably multifactorial. Check labs and followup to re-evaluate Assessment & Plan (02/24/2022 2:01 PM CDT): Probably multifactorial. Check labs and followup to re-evaluate Assessment & Plan (03/15/2019 7:04 PM CDT): Probably multifactorial. Check labs and followup to re-evaluate Abnormal mammogram 08/22/2015 Immunizations Immunization Administration Dates Next Due COVID-19 mRNA (Encover) 0.3 m L (30 mcg) vaccine (12 years and up) 09/17/2024 DTaP 03/23/2008 Influenza, Quadrivalent, Hig h Dose, Preservative Free, Intrr 08/26/2023,08/07/2022,08/08/2021,07/05 Influenza, Quadrivalent, Spl it, Intramuscular 07/25/2015 Influenza, Trivalent, High D ose, Split, Preservative Free, Intramuscular 06/29/2024,08/27/2019,09/05/2018 Influenza, Trivalent, Preser vative Free, Intramuscular 07/22/2015 Influenza, Unspecified 06/29/2024,2021,12/12/2021(Defer red: Patient Refused),11/11/2021(Deferred: Patient Refused),07/05/2020,04/04/2020 Pfizer SARS-CoV-2 Monovalent Vaccination (12+ Yrs) CARWTRIGHT-READY TO USE 03/06/2022 Pfizer SARS-CoV-2 Monovalent Vaccination (12+ Yrs) PURPLE 09/02/2023,09/07/2022,08/08/2021,01/24,01/03/2021 Pfizer Sars-Cov-2 Bivalent V accination (12+ YRS) 09/07/2022 Pneumococcal Conjugate PCV 13 03/05/2019, 017 Pneumococcal Polysaccharide PPV23 06/26/2022 ZOSTER Recombinant 05/13/2023,02/05/2023 Social History Tobacco Use Types Packs/Day Years Used Date Smoking Tobacco: Never Smokeless Tobacco: Never Tobacco Cessation:Counseling Given: Not Answered Alcohol Use Standard Drinks/Week Comments Yes 0 (1 standard drink = 0.6 oz pur e alcohol) [facility] Utilities Answer Date Recorded In the past 12 months has th e electric, gas, oil, or water company threatened to shut off services in your home? No 01/25/2025 Social Connection and Isolation Panel [NHANES] A nswer Date Recorded In a typical week, how many times do you talk on the phone with family, friends, or neighbors? Three times a week 01/25/2025 How often do you get togethe r with friends or relatives? Three times a week 01/25/2025 How often do you attend [facility] [id number]|2025-03-26 08:09:00|2025-03-26 08:09:00|XMS_ITS|BRENDA COATES|External Medical Summaries|[id number]|" Clinical Summary Created on: March 26, 2025 Sneha Zabala : 1950 Sex: Female Author Organization [id number] [facility] Address [facility] [place] [address] Care Team Providers Care Manager Of Financial Name Role Phone Olivia Almodovar Primary Care Provider [phone] Allergies Active Allergy Reactions Criticality Noted Date Comments Codeine Stomach upset Low 12/04/2011 Stomach/GI Upset Medications cholecalcifer ol (VITAMIN D-3) 5,000 unit capsule Take 1 capsule (5,000 Units total) by mouth daily Active cyanocobalami n, vitamin B-12, (VITAMIN B-12 ORAL) Take 1 tablet by mouth every evening Active CALCIUM ORAL Take 1 tablet by mouth daily Active escitalopram (LEXAPRO) 10 mg tabletIndicat ions:Anxiety Take 1 tablet (10 mg total) by mouth daily 01/18/20 25 Active HYDROcodone-a cetaminophen (NORCO) 5-325 mg per tabletIndicat ions:Pain Take 1-2 tablets by mouth every 4 (four) hours as needed for pain 50 tablet 01/27/20 25 Active Additional Information Patient not taking.Reported on 03/09/2025 meloxicam (MOBIC) 15 mg tablet Take 1 tablet (15 mg total) by mouth daily 30 tablet 1 01/27/20 25 026 Active traMADoL (ULTRAM) 50 mg tablet Take 1 tablet (50 mg total) by mouth every 6 (six) hours as needed for pain (mild to moderate pain, ok to take with Meloxicam, do not take with Jackson) 40 tablet 01/27/20 25 Active rosuvastatin (CRESTOR) 20 mg tablet Take 1 tablet by mouth once daily 90 tablet 03/10/20 25 Active lisinopriL (PRINIVIL,ZES TRIL) 10 mg tablet TAKE 1 TABLET BY MOUTH EVERY DAY 90 tablet 1 03/11/20 25 Active rosuvastatin (CRESTOR) 20 mg tablet Take 1 tablet by mouth once daily 90 tablet 12/11/19 25 025 Discontinued senna-docusat e (PERICOLACE) 8.6-50 mg Take 1 tablet by mouth daily 30 tablet 01/27/20 25 025 Discontinued( erapy completed) aspirin 81 mg enteric coated tabletIndicat ions:preventi on of thrombosis Take 1 tablet (81 mg total) by mouth daily for 28 days 28 tablet 01/27/20 25 025 Discontinued(Th erapy completed) lisinopriL (PRINIVIL,ZES TRIL) 10 mg tablet Take 1 tablet (10 mg total) by mouth daily 02/17/20 25 025 Discontinued Active Problems Problem Noted Date Diagnosed Date Status post total knee replacement not using vadim ent, left 02/09/2025 Assessment & Plan (02/16/2025 10:17 PM CDT): Status post total knee replacement by Dr. Jad Montgomery on January 25, 2025. She is doing physical therapy at home and doing well. No signs or symptoms of infection. Continue follow-up per ortho or follow up with this she has any other problems or concerns Pain of left calf 02/09/2025 Primary osteoarthritis of left knee 12/01/2024 Assessment & Plan (01/10/2025 11:14 PM FIREWORKS MAKER): Patient has arthritis of the knee. She is scheduled for total left knee replacement with Dr. Montgomery on January 25 in [facility]. Fatigue 03/07/2024 Assessment & Plan (03/07/2024 10:21 PM CDT): Probably multifactorial. Check labs and followup to re-evaluate Chronic pain of both knees 03/07/2024 Assessment & Plan (09/01/2024 11:31 AM CDT): Worsening BL knee pain. Taking ibuprofen as needed. Often wakes up in the middle of the night and in morning in pain. Will START meloxicam 15 mg nightly for longer duration of pain control. STOP ibuprofen with concurrent use of meloxicam. Patient is currently seeing Dr. Montgomery [facility] ortho. Steroid injections done with no improvement in pain. Patient is deferring surgery and other interventions until later time as she is currently caring for her who had recent surgery. Declines PT. Assessment & Plan (03/07/2024 10:21 PM CDT): Patient with bilateral knee pain. Will start with x-rays. Anxiety 08/26/2023 Assessment & Plan (01/10/2025 11:14 PM FIREWORKS MAKER): Symptoms are stable with the Lexapro 10. Assessment & Plan (09/01/2024 11:13 AM CDT): Stable with Lexapro 10 mg Assessment & Plan (08/26/2023 9:11 AM CDT): Stable with Lexapro. Refills available at pharmacy Chronic left-sided low back pain without sciatic a 02/25/2023 Assessment & Plan (02/25/2023 11:54 PM CDT): This is a significant, separately identifiable problem that was evaluated and managed on the same day as the wellness exam Encouraged NSAIDS (if able to safely tolerate) or Tylenol. Topical preparations like Lidocaine patches, Biofreeze, ICYHOT etc as needed. Heat, stretching Avoid long periods of sitting/laying. Encouraged PT but patient declined. Followup if has any problems controlling bowels or bladder or if sxs worsen. Obesity (BMI 30.0-34.9) 03/06/2022 Assessment & Plan (01/05/2025 2:41 PM FIREWORKS MAKER): Discussed the patient's BMI. The BMI is above average. BMI management plan is completed. BMI Follow-up includes: nutrition counseling, exercise counseling and education provided. Assessment & Plan (09/01/2024 8:37 AM CDT): Discussed the patient's BMI. The BMI is above average. BMI management plan is completed. BMI Follow-up includes: nutrition counseling, exercise counseling and education provided. Assessment & Plan (03/20/2022 11:40 PM CDT): Obesity is unchanged. Discussed the patient's BMI. The BMI is above average. BMI management plan is completed. BMI Follow-up includes: nutrition counseling, exercise counseling and education provided. Patient has an obesity-related condition (not limited to: hypertension, obstructive sleep apnea, osteoarthritis, hyperlipidemia, diabetes, etc.). Therefore, morbid obesity may be documented for patients with a BMI between 35.00-39.99. Assessment & Plan (03/07/2022 10:09 PM CDT): Obesity is unchanged. Discussed the patient's BMI. The BMI is above average. BMI management plan is completed. BMI Follow-up includes: nutrition counseling, exercise counseling and education provided. Patient has an obesity-related condition (not limited to: hypertension, obstructive sleep apnea, osteoarthritis, hyperlipidemia, diabetes, etc.). Therefore, morbid obesity may be documented for patients with a BMI between 35.00-39.99. Lesion of skin of face 03/06/2022 Assessment & Plan (03/07/2024 10:20 PM CDT): Encouraged to follow-up with Dr. Abdi for the area on her face/nose Assessment & Plan (02/25/2023 11:53 PM CDT): Patient has facial rash. Unsure if it is secondary to wearing a mask verses a pustular rosacea. She would like to see Dermatology. She prefers Dr. Abdi. Provided his name and number to call as she was referred last year and did not follow-up. She is in agreement the plan Assessment & Plan (03/07/2022 10:09 PM CDT): Bleeding lesion on the tip of her nose. Will make referral to Dermatology for further evaluation. Primary hypertension 02/24/2022 Assessment & Plan (02/16/2025 10:17 PM CDT): Bp is stable/in acceptable range for any co-morbidities. Encouraged to limit sodium intake and exercise for weight control. Continue lisinopril 10 Assessment & Plan (01/10/2025 11:14 PM FIREWORKS MAKER): Bp is stable/in acceptable range for any co-morbidities. Encouraged to limit sodium intake and exercise for weight control. Continue lisinopril 10 Assessment & Plan (09/01/2024 11:13 AM CDT): BP in stable range. Encouraged low sodium diet, daily exercise, weight management. Continue lisinopril 10 mg. Assessment & Plan (03/07/2024 10:21 PM CDT): Bp is stable/in acceptable range for any co-morbidities. Encouraged to limit sodium intake and exercise for weight control. Continue lisinopril. Encouraged her to decrease her banana intake as her potassium is just on the upper edge of normal Assessment & Plan (08/26/2023 9:11 AM CDT): Bp is stable/in acceptable range for any co-morbidities. Encouraged to limit sodium intake and exercise for weight control. Continue lisinopril 10 Assessment & Plan (02/25/2023 11:52 PM CDT): Bp is stable/in acceptable range for any co-morbidities. Encouraged to limit sodium intake and exercise for weight control. Continue lisinopril Assessment & Plan (08/26/2022 2:49 PM CDT): Bp is stable/in acceptable range for any co-morbidities. Encouraged to limit sodium intake and exercise for weight control. Continue lisinopril 10 Assessment & Plan (06/26/2022 8:31 AM CDT): Bp is stable/in acceptable range for any co-morbidities. Encouraged to limit sodium intake and exercise for weight control. Continue lisinopril Assessment & Plan (03/20/2022 11:40 PM CDT): Bp is stable/in acceptable range for any co-morbidities. Encouraged to limit sodium intake and exercise for weight control. Stable with lisinopril 10 Assessment & Plan (03/07/2022 10:09 PM CDT): Bp is stable/in acceptable range for any co-morbidities. Encouraged to limit sodium intake and exercise for weight control. Continue lisinopril 10 mg Assessment & Plan (02/24/2022 2:04 PM CDT): Patient with elevated readings today. Her readings in the past have been more normal but she has not followed in the office in a few years. Discussed starting medication as I think she would benefit but she is very hesitant to add a medication. Advised may follow-up in 1 week with readings to reassess and if still elevated that point will need to start medication. She is in agreement. BMI 34.0-34.9,adult 06/10/2019 Assessment & Plan (01/05/2025 2:41 PM FIREWORKS MAKER): Discussed the patient's BMI. The BMI is above average. BMI management plan is completed. BMI Follow-up includes: nutrition counseling, exercise counseling and education provided. Assessment & Plan (08/30/2019 7:57 PM CDT): Obesity is unchanged. Discussed the patient's BMI. The BMI is above average. BMI management plan is completed. BMI Follow-up includes: nutrition counseling, exercise counseling and education provided. Assessment & Plan (06/10/2019 2:55 PM CDT): Obesity is unchanged. Discussed the patient's BMI. The BMI is above average. BMI management plan is completed. BMI Follow-up includes: nutrition counseling, exercise counseling and education provided. Vertigo 03/05/2019 Assessment & Plan (03/15/2019 7:05 PM CDT): Refill meclizine to use prn. Tinea cruris 03/05/2019 Assessment & Plan (03/15/2019 6:58 PM CDT): Flairing. Keep area clean and dry. Use cool hairdryer prior to applying the Lotrisone. Menopause 03/05/2019 Assessment & Plan (02/24/2022 2:00 PM CDT): Check DEXA Assessment & Plan (03/15/2019 6:58 PM CDT): DXA order provided Mixed hyperlipidemia 03/05/2019 Assessment & Plan (02/16/2025 10:17 PM CDT): Encouraged patient to follow low fat/low chol diet like the Mediterranean diet. Increase good fats in the diet. Increase exercise. Monitor labs as needed. Continue Crestor 20 Assessment & Plan (01/10/2025 11:14 PM FIREWORKS MAKER): Encouraged patient to follow low fat/low chol diet like the Mediterranean diet. Increase good fats in the diet. Increase exercise. Monitor labs as needed. Continue Crestor 20 Assessment & Plan (09/01/2024 11:08 AM CDT): Lipid levels stable. Encouraged low fat/low cholesterol diet such as the Mediterranean diet. Encouraged healthy lifestyle, daily exercise, weight management. Continue rosuvastatin 20 mg daily. Assessment & Plan (03/07/2024 10:20 PM CDT): Encouraged patient to follow low fat/low chol diet like the Mediterranean diet. Increase good fats in the diet. Increase exercise. Monitor labs as needed. Continue Crestor 20 Assessment & Plan (08/26/2023 9:11 AM CDT): Encouraged patient to follow low fat/low chol diet like the Mediterranean diet. Increase good fats in the diet. Increase exercise. Monitor labs as needed. Continue Crestor Assessment & Plan (02/25/2023 11:52 PM CDT): Encouraged patient to follow low fat/low chol diet like the Mediterranean diet. Increase good fats in the diet. Increase exercise. Monitor labs as needed. Continue Crestor Assessment & Plan (08/26/2022 2:49 PM CDT): Encouraged patient to follow low fat/low chol diet like the Mediterranean diet. Increase good fats in the diet. Increase exercise. Monitor labs as needed. Continue Crestor Assessment & Plan (06/26/2022 8:30 AM CDT): Encouraged patient to follow low fat/low chol diet like the Mediterranean diet. Increase good fats in the diet. Increase exercise. Monitor labs as needed. Patient still wants to work on diet control. Waiting to check labs to determine control Assessment & Plan (03/26/2022 1:54 PM CDT): Encouraged patient to follow low fat/low chol diet like the Mediterranean diet. Increase good fats in the diet. Increase exercise. Monitor labs as needed. Discussed starting statin. She declines at this time Addendum: 03/26 corrected after speaking with patient -- Will start Crestor 10mg. Try her normal pharm [facility] and if too expensive, will try good Rx. Assessment & Plan (03/07/2022 10:08 PM CDT): Encouraged patient to follow low fat/low chol diet like the Mediterranean diet. Increase good fats in the diet. Increase exercise. Monitor labs as needed. Will await lipid panel as it was not drawn at the lab. Assessment & Plan (02/24/2022 2:00 PM CDT): Encouraged patient to follow low fat/low chol diet like the Mediterranean diet. Increase good fats in the diet. Increase exercise. Monitor labs as needed. Patient stop statin a couple years ago as she did not follow-up in the office. Has not had labs since 2019. Recommend labs and reassess need for the statin. Assessment & Plan (08/30/2019 7:57 PM CDT): Encouraged patient to continue low fat/low chol diet. Continue exercise. Increase good fats in the diet. Monitor labs as needed. D Needs to start statin. Reviewed risks, benefit, alternatives, side effects and proper use. Start Crestor. Recheck LFTs in 3-4 months when rechecking the lipids Assessment & Plan (03/15/2019 6:59 PM CDT): Check labs. Pt hasn't had labs in years. Hyperglycemia 03/05/2019 Assessment & Plan (03/07/2024 10:20 PM CDT): Pre-diabetes/hyperglycemia is a precursor to Dm. Stressed importance of working on diet (decrease your simple sugars and one carbohydrate with each meal) and increase you exercise to achieve weight loss and this will help prevent you from progressing to diabetes. Assessment & Plan (08/26/2022 2:49 PM CDT): Pre-diabetes/hyperglycemia is a precursor to Dm. Stressed importance of working on diet (decrease your simple sugars and one carbohydrate with each meal) and increase you exercise to achieve weight loss and this will help prevent you from progressing to diabetes. Assessment & Plan (02/24/2022 2:00 PM CDT): Pre-diabetes/hyperglycemia is a precursor to Dm. Stressed importance of working on diet (decrease your simple sugars and one carbohydrate with each meal) and increase you exercise to achieve weight loss and this will help prevent you from progressing to diabetes. Assessment & Plan (03/15/2019 6:59 PM CDT): Hyperglycemia can be a precursor to Dm. Stressed importance of working on diet (decrease your simple sugars and one carbohydrate with each meal) and increase you exercise to achieve weight loss and this will help prevent you from progressing to diabetes. Check labs Moderate episode of recurrent major depressive d isorder 03/04/2019 Assessment & Plan (02/16/2025 10:16 PM CDT): Depression anxiety symptoms are stable with the Lexapro 10 Assessment & Plan (01/10/2025 11:14 PM FIREWORKS MAKER): Symptoms are stable with Lexapro 10 Assessment & Plan (03/07/2024 10:20 PM CDT): Stable with Lexapro. Still encouraged [facility] and counseling. Assessment & Plan (08/26/2023 9:10 AM CDT): Continue Lexapro. Symptoms are stable Assessment & Plan (02/25/2023 11:52 PM CDT): Symptoms are stable with Lexapro 10 Assessment & Plan (08/26/2022 2:49 PM CDT): Patient still have symptoms as well as problems with gambling. Was prescribed Lexapro but very hesitant to take it. Reviewed risks benefits alternatives side effects and proper use. She still has available at home so may consider. Call at any time if needs assistance. Strongly encouraged counseling Assessment & Plan (06/26/2022 8:29 AM CDT): Discussed again stress and depression symptoms at length. Discussed the addiction with her gambling. Strongly encouraged counseling. Will represcribe the Lexapro 10 mg. Reviewed risks benefits alternatives side effects and proper use. Follow-up in 4-6 weeks to reassess Assessment & Plan (03/07/2022 10:08 PM CDT): Patient never started the Lexapro. She feels like she is doing okay. She does get frustrated at times but wants to continue to observe. Will reassess in 4-6 weeks. May call at any time if desires to start again. Assessment & Plan (08/30/2019 7:57 PM CDT): Never started the Lexapro. Wants to monitor without medication. Assessment & Plan (06/13/2019 9:24 AM CDT): Discussed depression/grief and gambling. Discussed treatment options including medication and counseling and behavioral changes, but she may need to seek specific treatment for gambling addiction. Start Lexapro. Reviewed risks, benefit, alternatives, side effects and proper use. Assessment & Plan (03/15/2019 7:04 PM CDT): Depression sxs are increasing related to situational issues. Reviewed behavioral changes. Discussed medication but at this point wants to try to without medications. Call if sxs increase Depression, major, single episode, mild 02/01/20 17 Non morbid obesity due to excess calories 2016 Resolved Problems Problem Noted Date Diagnosed Date Resolved Date Orthopedic aftercare 02/09/2025 025 Arthritis of left knee 01/25/202502/16 Encounter for pre-operative examination 01/10/2025 02/16/2025 Assessment & Plan (01/10/2025 11:19 PM FIREWORKS MAKER): Pre-op labs and EKG results are on the chart and are normal. I have examined this patient and ordered the appropriate lab work/tests. I have reviewed with patient the inherent risks associated with surgery, not limited to bleeding, infection, DVT, etc. I EKG was normal. Patient denies any cardiac sxs with activity. Therefore, to the best of my knowledge, there is not a medical contraindication for undergoing this elective surgery with general and/or regional anesthesia. BMI 34.0-34.9,adult 08/26/2023 09/01/20 Assessment & Plan (03/07/2024 10:21 PM CDT): Discussed the patient's BMI. The BMI is above average. BMI management plan is completed. BMI Follow-up includes: nutrition counseling, exercise counseling and education provided. Assessment & Plan (08/26/2023 8:41 AM CDT): Discussed the patient's BMI. The BMI is above average. BMI management plan is completed. BMI Follow-up includes: nutrition counseling, exercise counseling and education provided. BMI 33.0-33.9,adult 08/26/2023 01/11/20 25 Assessment & Plan (09/01/2024 8:35 AM CDT): Discussed the patient's BMI. The BMI is above average. BMI management plan is completed. BMI Follow-up includes: nutrition counseling, exercise counseling and education provided. Assessment & Plan (03/07/2024 10:21 PM CDT): Discussed the patient's BMI. The BMI is above average. BMI management plan is completed. BMI Follow-up includes: nutrition counseling, exercise counseling and education provided. Assessment & Plan (08/26/2023 8:41 AM CDT): Discussed the patient's BMI. The BMI is above average. BMI management plan is completed. BMI Follow-up includes: nutrition counseling, exercise counseling and education provided. Need for immunization against influenza 08/26/2023 03/07/2024 Assessment & Plan (08/26/2023 9:11 AM CDT): Flu vaccine updated in the office today Obesity (BMI 30-39.9) 02/25/20232022 Assessment & Plan (02/25/2023 8:47 AM CDT): Discussed the patient's BMI. The BMI is above average. BMI management plan is completed. BMI Follow-up includes: nutrition counseling, exercise counseling and education provided. BMI 34.0-34.9,adult 02/25/2023 08/26/20 23 Assessment & Plan (02/25/2023 8:47 AM CDT): Discussed the patient's BMI. The BMI is above average. BMI management plan is completed. BMI Follow-up includes: nutrition counseling, exercise counseling and education provided. Medicare annual wellness visit, subsequent 02/25/2023 01/10/2025 Assessment & Plan (03/07/2024 10:20 PM CDT): Insert Medicare wellness exam Assessment & Plan (02/25/2023 11:54 PM CDT): Encouraged healthy lifestyle, good nutrition and exercise. Encouraged Calcium and Vitamin D and weight bearing exercise for bone health. Reviewed immunizations. Reviewed age appropirate screenings. Medicare Wellness Documentation is completed within the chart Breast cancer screening by mammogram 02/25/2023 03/07/2024 Assessment & Plan (02/25/2023 11:54 PM CDT): Mammogram order provided Hyperkalemia 02/25/2023 03/07/2024 Assessment & Plan (02/25/2023 11:55 PM CDT): This is a significant, separately identifiable problem that was evaluated and managed on the same day as the wellness exam Potassium is elevated. She states she eats 1-2 bananas every day. Suspect this is the underlying cause of the hyperkalemia. Encouraged her to decrease to half a banana day. Recheck CMP in 1-2 weeks. If still elevated may have to consider changing the lisinopril but truly suspect that this is dietary intake issue. Flu vaccine need 08/26/2022 02/25/2023 Assessment & Plan (08/26/2022 2:49 PM CDT): Flu vaccine updated in the office today Obesity (BMI 30-39.9) 06/26/20222022 Assessment & Plan (08/26/2022 2:49 PM CDT): Discussed the patient's BMI. The BMI is above average. BMI management plan is completed. BMI Follow-up includes: nutrition counseling, exercise counseling and education provided. Assessment & Plan (06/26/2022 7:29 AM CDT): Obesity is unchanged. Discussed the patient's BMI. The BMI is above average. BMI management plan is completed. BMI Follow-up includes: nutrition counseling, exercise counseling and education provided. BMI 34.0-34.9,adult 06/26/2022 02/26/20 23 Assessment & Plan (08/26/2022 2:49 PM CDT): Discussed the patient's BMI. The BMI is above average. BMI management plan is completed. BMI Follow-up includes: nutrition counseling, exercise counseling and education provided. Assessment & Plan (06/26/2022 7:29 AM CDT): Obesity is unchanged. Discussed the patient's BMI. The BMI is above average. BMI management plan is completed. BMI Follow-up includes: nutrition counseling, exercise counseling and education provided. Need for 23-polyvalent pneum ococcal polysaccharide vaccine 06/26/2022 08/26/2022 Assessment & Plan (06/26/2022 8:31 AM CDT): Updated in office today Obesity (BMI 30-39.9) 03/20/20222021 Assessment & Plan (03/20/2022 11:03 AM CDT): Obesity is unchanged. Discussed the patient's BMI. The BMI is above average. BMI management plan is completed. BMI Follow-up includes: nutrition counseling, exercise counseling and education provided. BMI 35.0-35.9,adult 03/20/2022 06/26/20 22 Assessment & Plan (03/20/2022 11:04 AM CDT): Obesity is unchanged. Discussed the patient's BMI. The BMI is above average. BMI management plan is completed. BMI Follow-up includes: nutrition counseling, exercise counseling and education provided. Facial lesion 03/20/2022 02/25/2023 Assessment & Plan (03/20/2022 11:40 PM CDT): Patient facial lesion that continues to bleed. She needs to see Derm. First referral will take over 6 months so will make a new referral. BMI 35.0-35.9,adult 03/06/2022 03/20/20 22 Assessment & Plan (03/06/2022 1:06 PM CDT): Obesity is unchanged. Discussed the patient's BMI. The BMI is above average. BMI management plan is completed. BMI Follow-up includes: nutrition counseling, exercise counseling and education provided. Obesity (BMI 30-39.9) 02/20/20222021 Assessment & Plan (02/20/2022 8:48 AM CDT): Obesity is unchanged. Discussed the patient's BMI. The BMI is above average. BMI management plan is completed. BMI Follow-up includes: nutrition counseling, exercise counseling and education provided. BMI 35.0-35.9,adult 02/20/2022 03/06/20 Assessment & Plan (02/20/2022 8:48 AM CDT): Obesity is unchanged. Discussed the patient's BMI. The BMI is above average. BMI management plan is completed. BMI Follow-up includes: nutrition counseling, exercise counseling and education provided. Medicare annual wellness visit, subsequent 02/20/2022 03/07/2022 Assessment & Plan (02/24/2022 2:01 PM CDT): Encouraged healthy lifestyle, good nutrition and exercise. Encouraged Calcium and Vitamin D and weight bearing exercise for bone health. Reviewed immunizations. Reviewed age appropirate screenings. Medicare Wellness Documentation is completed within the chart Breast cancer screening by mammogram 02/20/2022 06/26/2022 Assessment & Plan (02/24/2022 2:01 PM CDT): Mammogram order provided Colon cancer screening 02/20/202208/26 Assessment & Plan (06/26/2022 8:30 AM CDT): Scheduled with Dr. Suazo on July 19 Assessment & Plan (02/24/2022 2:02 PM CDT): Patient needs colonoscopy. No record of any colon cancer screening Neck pain 01/29/2022 03/07/2024 Assessment & Plan (01/29/2022 3:43 PM CDT): Patient was seen by telephone so difficult to fully evaluate patient as unable to examine. I verbalized this to the patient and she understood. I offered her a visit sooner that her follow-up in 3 weeks she declines at this time. This sounds like a possible torticollis versus other musculoskeletal tenderness. Recommend physical therapy along with an anti-inflammatory and ice and/or heat to the area. She declines all of this. 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 Advised will need to check with her insurance on coverage but usually she can self refer with this. If her symptoms worsen she is to follow up. Advised difficult to get an MRI without 1st considering physical therapy so she may call at any time for that order if she desires. Leukopenia 08/30/2019 03/07/2024 Assessment & Plan (08/30/2019 8:01 PM CDT): Recheck labs Encounter for pre-operative examination 08/30/2019 03/07/2022 Assessment & Plan (08/30/2019 7:59 PM CDT): EKG in office normal. MAC is planned. She denies CP, SOB, pain with exertion. Has tolerated both MAC and general in the past without problems. Will provide clearance for the patient for her eye surgery. Forms completed and returned to Opthamologist. Need for immunization against influenza 08/30/2019 03/07/2022 Assessment & Plan (08/30/2019 8:01 PM CDT): Updated in office today Chronic otitis externa of both ears 03/15/2019 03/07/2022 Assessment & Plan (03/15/2019 7:02 PM CDT): Avoid qtips or putting things into the ears. Cortisporin otic to both ears. Followup if sxs persist BMI 35.0-35.9,adult 03/05/2019 06/10/20 19 Assessment & Plan (03/15/2019 7:02 PM CDT): Obesity is unchanged. Discussed the patient's BMI. The BMI is above average; BMI management plan is completed. General weight loss/lifestyle modification strategies discussed (elicit support from others; identify saboteurs; non-food rewards, etc). Obesity (BMI 30-39.9) 03/05/20192021 Assessment & Plan (08/30/2019 7:56 PM CDT): Obesity is unchanged. Discussed the patient's BMI. The BMI is above average. BMI management plan is completed. BMI Follow-up includes: nutrition counseling, exercise counseling and education provided. Assessment & Plan (06/10/2019 2:55 PM CDT): Obesity is unchanged. Discussed the patient's BMI. The BMI is above average. BMI management plan is completed. BMI Follow-up includes: nutrition counseling, exercise counseling and education provided. Assessment & Plan (03/15/2019 6:58 PM CDT): Obesity is unchanged. Discussed the patient's BMI. The BMI is above average; BMI management plan is completed. General weight loss/lifestyle modification strategies discussed (elicit support from others; identify saboteurs; non-food rewards, etc). Other fatigue 03/05/2019 03/07/2024 Assessment & Plan (08/26/2022 2:49 PM CDT): Probably multifactorial. Check labs and followup to re-evaluate Assessment & Plan (02/24/2022 2:01 PM CDT): Probably multifactorial. Check labs and followup to re-evaluate Assessment & Plan (03/15/2019 7:04 PM CDT): Probably multifactorial. 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, left Discharge Disposition: Discharge to home or self care 02/18/2025 Telephone [facility] Orthopedics and Sports Medicine [address] [place] [phone] Jovany Montgomery MD after surgery machine 02/09/2025 12:40 PM CDT - 02/09/2025 11:59 PM CDT Hospital Encounter [facility] Cardiac Testing [address] [place] [address] Pain of left calf Discharge Disposition: Discharge to home or self care 02/09/2025 11:00 AM CDT - 02/09/2025 11:59 PM CDT Hospital Encounter [facility] Di[facility] Imaging [address] [place] [phone] Primary osteoarthritis of left knee Discharge Disposition: Discharge to home or self care 02/09/2025 10:30 AM CDT Office Visit [facility]opedics and Sports Medicine [address] [place] [phone] Vasu Pereira PA Status post total knee replacement not using cement, left (Primary Dx); Orthopedic aftercare; Pain of left calf; Primary osteoarthritis of left knee 02/08/2025 Telephone [facility] Orthoped[facility] and Sports Medicine [address] [place] [phone] Jovany Montgomery MD 02/04/2025 9:30 AM CDT Telemedicine [facility] Family Medicine [address] [facility] [address] [place] [phone] Olivia Almodovar PA Status post total knee replacement not using cement, left (Primary Dx); Moderate episode of recurrent major depressive disorder (HCC); Mixed hyperlipidemia; Primary hypertension 01/27/2025 Telephone [facility] Orthopedics [facility] Sports Medicine [address] [place], [place] [address] [phone] Jovany Montgomery MD 01/25/2025 11:15 AM CDT - 01/25/2025 1:45 PM CDT Surgery [facility] OR [address] [place] [address] Jovany Montgomery MD LEFT TOTAL KNEE ARTHROPLASTY 01/25/2025 11:01 AM CDT Anesthesia Event [facility] OR [address] [place] [phone] Rhonda Campos MD Taylor-White, Carlotta A., NP 01/25/2025 10:30 AM CDT Ancillary Procedure [facility] OR [address] [place] [phone] 01/25/2025 9:10 AM CDT - 01/26/2025 3:00 PM CDT Hospital Encounter [address] [address] Jovany Montgomery MD Primary osteoarthritis of left knee (Primary Dx); Arthritis of left knee Discharge Disposition: Discharge to home, home health skilled care 01/15/2025 Telephone [facility] Orthopedics and Sports Medicine [address] [place] [phone] Jovany Montgomery MD Wants seat for toilet after TKA sgy 01/12/2025 12:20 PM FIREWORKS MAKER Pre-Admission Testing [facility] PreAdmission Testing [address] [place] [address] Preop examination (Primary Dx); Primary osteoarthritis of left knee; Preop testing 01/12/2025 10:00 AM FIREWORKS MAKER Therapy [facility] OP Physical Therapy [address] [place] [phone] Kerri Kwok, HALEIGH Primary osteoarthritis of right knee (Primary Dx) 01/12/[address] [address] Kezia Patel, NATHALIE 01/12/2025 Plan of Care Documentation [facility] OP Physical Therapy [address] [facility] [address] [place] [address] 01/08/2025 Telephone [facility] Orthopedics and Sports Medicine [address] [facility] [address] [place] [phone] Jovany Montgomery MD 01/05/2025 2:30 PM FIREWORKS MAKER Office Visit [facility] Family Medicine [address] [facility] [address] [place] [phone] Olivia Almodovar PA Primary osteoarthritis of left knee (Primary Dx); Encounter for pre-operative examination; Moderate episode of recurrent major depressive disorder (HCC); Mixed hyperlipidemia; Primary hypertension; Anxiety; Obesity (BMI 30.0-34.9); BMI 34.0-34.9,adult 01/04/2025 5:59 AM FIREWORKS MAKER - 01/04/2025 11:59 PM FIREWORKS MAKER Hospital Encounter [facility] MRI [address] [place] [address] Chronic right-sided low back pain with bilateral sciatica; Lumbar radiculopathy Discharge Disposition: Discharge to home or self care from Last 3 Months Immunizations Immunization Administration Dates Next Due COVID-19 mRNA (Encover) 0.3 m L (30 mcg) vaccine (12 years and up) 09/17/2024 DTaP 03/23/2008 Influenza, Quadrivalent, Hig h Dose, Preservative Free, Intrr 08/26/2023,08/07/2022,08/08/2021,07/05 Influenza, Quadrivalent, Spl it, Intramuscular 07/25/2015 Influenza, Trivalent, High D ose, Split, Preservative Free, Intramuscular 06/29/2024,08/27/2019,09/05/2018 Influenza, Trivalent, Preser vative Free, Intramuscular 07/22/2015 Influenza, Unspecified 06/29/2024,2021,12/12/2021(Defer red: Patient Refused),11/11/2021(Deferred: Patient Refused),07/05/2020,04/04/2020 Pulsant SARS-CoV-2 Monovalent Vaccination (12+ Yrs) CARTWRIGHT-READY TO USE 03/06/2022 Pulsant SARS-CoV-2 Monovalent Vaccination (12+ Yrs) PURPLE 09/02/2023,09/07/2022,08/08/2021,01/24,01/03/2021 Pulsant Sars-Cov-2 Bivalent V accination (12+ YRS) 09/07/2022 Pneumococcal Conjugate PCV 13 03/05/2019, 017 Pneumococcal Polysaccharide PPV23 06/26/2022 ZOSTER Recombinant 05/13/2023,02/05/2023 Surgical History Surgery Date Site/Laterality Comments BREAST LUMPECTOMY BREAST BIOPSY 11/11/2017 - 2018 Left VITRECTOMY Right CATARACT EXTRACTION Bilateral ABLATION 1990s heart ablation at [facility] HYSTERECTOMY CHOLECYSTECTOMY Medical History Medical History Date Comments Depression High cholesterol High blood pressure Osteoarthritis Lumbar spondylosis Anterolisthesis of lumbar spine DDD (degenerative disc disease), lumbar Obesity
== END 2025-03-26 08:05 | disposition home or self-care (01) ==
PROVIDERS: PCP Physician Assistant; Visit Provider Physician Assistant
DX: Z12.31 Encounter for screening mammogram for malignant neoplasm of breast (principal)
CPT/HCPCS: 77063; 77067